=== PATIENT | male | born 1950 | race Caucasian/White ===

== ENCOUNTER 2022-01-05 12:32 | Emergency (ER) | payer MEDICARE ==
[2022-01-05] MEDS ORDERED: Ketorolac Tromethamine 60 MG/2 ML VIAL ONE (13:20)
== END 2022-01-05 14:01 | disposition home or self-care (01) ==
LOC: BURERS 12:32
DX: M16.12 Unilateral primary osteoarthritis, left hip (principal)
CPT/HCPCS: 96374; J1885